=== PATIENT | female | born 1985 | race American Indian/Alaskan Native ===

== ENCOUNTER 2017-08-11 06:22 | Inpatient (IN) | payer OTHER ==
[~2017-08-11 06:22] MED LIST: PITOCin/NS 20 UNIT/1000ML DRIP 20,000 MILLIUNITS/1,000 ML BAG IV ONE; XYLOCAINE 2% INFILTRATI ONE
--- NOTE | 2017-08-11 06:28 | History and Physical Report ---
History of Present Illness Date of examination: 08/11/17 Date of admission: 08/11/17 06:23 Chief complaint: Labor History of present illness: Pt is a 32yo HF EDC 08/21/17; EGA 38 4/7 weeks presents to L&D complaining of RUC's q 2-3 mins. Cx 9.5/C/V/0 She received care at [facility] and course has been unremarkable. records are not available, and GBS is unknown. Past History Past Medical History: no pertinent history Past Surgical History: no surgical history Social history: no significant social history, - Obstetrical History Expected Date of Delivery: 08/21/17 Actual Gestation: 38 Week(s) 4 Day(s) Medications and Allergies Allergies Allergy/AdvReac Type Severity Reaction Status Date / Time No Known Allergies Allergy Verified 08/11/17 06:50 Review of Systems All systems: negative - Physical Exam Breasts: Positive: deferred Cardiovascular: Regular rate Lungs: Positive: Clear to auscultation Abdomen: Positive: normal appearance Genitourinary (Female): Positive: normal external genitalia Uterus: Positive: enlarged Extremities: Positive: normal - Obstetrical FHR: category 1 Uterine Contraction Monitor Mode: External Cervical Dilatation: 9.5 Cervical Effacement Percentage: 100 station: 0 Uterine Contraction Pattern: Regular Uterine Tone Measurement Phase: Contraction Uterine Contraction Intensity: Strong/Firm Results Result Diagrams: 08/11/17 06:15 All other labs normal. Assessment and Plan - Patient Problems (1) 38 weeks gestation of Onset Date: 08/11/17 Current Visit: Yes Status: Acute Plan to address problem: A: IUP @ 38 4/7 weeks in labor Unknown GBS P: Admit to L&D for expectant vaginal delivery IV Ampicillin Obtain Medical records
[2017-08-11] MEDS ORDERED: SUBLIMAZE IV PRN (06:30)
[2017-08-11] MEDS ORDERED: XYLOCAINE 2% INFILTRATI ONE (06:30)
[2017-08-11] MEDS ORDERED: MINERAL OIL PO PRN (06:30)
[2017-08-11] MEDS ORDERED: ePHEDrine SULFATE IV PRN (06:30)
[2017-08-11] MEDS ORDERED: BRETHINE SUB-Q PRN (06:30)
[2017-08-11] MEDS ORDERED: BRETHINE IVP PRN (06:30)
[2017-08-11] MEDS ORDERED: TYLENOL PO PRN (06:33)
[2017-08-11] MEDS ORDERED: PHENERGAN PO PRN (06:33)
[2017-08-11] MEDS ORDERED: ZOFRAN IV PRN (06:33)
[2017-08-11] MEDS ORDERED: BENADRYL PO PRN (06:33)
[2017-08-11] MEDS ORDERED: MILK OF MAGNESIA PO PRN (06:33)
[2017-08-11] MEDS ORDERED: TUCKS PAD TP PRN (06:33)
[2017-08-11] MEDS ORDERED: NORCO 5/325 PO PRN (06:33)
[2017-08-11] MEDS ORDERED: LANSINOH TP PRN (06:33)
[2017-08-11] MEDS ORDERED: DULCOLAX PR PRN (06:33)
[2017-08-11] MEDS ORDERED: PHENERGAN PR PRN (06:33)
--- NOTE | 2017-08-11 06:39 | Procedure Note ---
OB Delivery Note - Delivery Date of Delivery: 08/11/17 Surgeon: MACHO WALTON Estimated blood loss: 100cc - Vaginal Delivery presentation: vertex Delivery position: OA Intrapartum events: precipitous labor- <3hr Delivery induction: none Delivery augmentation: rupture of membranes Delivery monitor: external FHT, external uterine Route of delivery: Delivery placenta: spontaneous Delivery cord: 3 umbilical vessels Episiotomy: none Delivery laceration: 1st degree Delivery repair: vicryl Anesthesia: local Delivery comments: Infant delivered OA and placed on Mom's chest for [id number] bonding and delayed cord clamping. - Infant A at 1 minute: 8 at 5 minutes: 9 Gender: Female (3147gms)
[2017-08-11] MEDS ORDERED: PITOCin/NS 30 UNIT/500ML 30 UNITS/500 ML BAG IV SCH (07:00)
[2017-08-11] MEDS ORDERED: SODIUM CHLORIDE FLUSH SYRINGE 10 ML IV PRN (07:00)
[2017-08-11] MEDS ORDERED: LACTATED RINGERS 1,000 ML IV SCH (07:00)
[2017-08-11] MEDS ORDERED: PITOCin/NS 20 UNIT/1000ML DRIP 20 UNITS/1,000 ML BAG IV SCH ×2 (07:00)
[2017-08-11 07:12] LABS: Hematocrit 37.5 % (30.3-42.9); Hemoglobin 12.1 gm/dl (10.1-14.3); Mean Corpuscular HGB Conc 32 % (30-34); Mean Corpuscular Hemoglobin 28 pg (28-32); Mean Corpuscular Volume 88 fl (79-97); Platelet Count 196 K/mm3 (140-440); Red Blood Count 4.28 M/mm3 (3.65-5.03); Red Cell Distribution Width 15.4 % (13.2-15.2); White Blood Count 17.1 K/mm3 (4.5-11.0)
[2017-08-11 11:23] LABS: HIV-1 Antigen p24 Non React (Non React); HIVR-1/2 Ab Non React (Non React)
[2017-08-11] MEDS: PRENATAL VITAMIN PO SCH (12:38)
[2017-08-11] MEDS: FEOSOL PO SCH ×2 (12:38→21:30)
[2017-08-11] MEDS: COLACE PO SCH ×2 (12:39→21:30)
[2017-08-11] MEDS: MOTRIN PO SCH ×2 (12:39→18:15)
[2017-08-11 18:41] LABS: Hematocrit 32.7 % (30.3-42.9); Hemoglobin 10.5 gm/dl (10.1-14.3)
[2017-08-12] MEDS: MOTRIN PO SCH ×4 (00:12→17:55)
[2017-08-12] MEDS ORDERED: BOOSTRIX IM ONE (06:00)
[2017-08-12] MEDS ORDERED: M-M-R II VACCINE SUB-Q ONE (06:33)
[2017-08-12] MEDS: FEOSOL PO SCH ×2 (09:27→22:33)
[2017-08-12] MEDS: COLACE PO SCH ×2 (09:27→22:33)
[2017-08-12] MEDS: PRENATAL VITAMIN PO SCH (09:27)
--- NOTE | 2017-08-12 09:58 | Progress Note ---
Assessment and Plan A: PPD 1 - stable P: Continue current management Discharge patient to home Subjective - Subjective Date of service: 08/12/17 Patient reports: appetite normal, voiding normally, pain well controlled, ambulating normally : doing well, nursing well Objective - Vital Signs Latest vital signs: Vital Signs Temp Pulse Resp BP BP Pulse Ox 08/12/17 07:35 98.3 F 61 18 95/56 96 08/12/17 06:19 18 08/12/17 05:19 16 08/12/17 00:30 98.6 F 72 16 102/68 08/11/17 20:45 98.6 F 72 16 114/69 08/11/17 16:30 98.7 F 69 18 101/50 08/11/17 12:50 98.3 F 65 18 89/60 08/11/17 10:05 98.6 F 70 18 100/77 98 Intake and Output 08/11/17 08/12/17 08/12/17 23:59 07:59 15:59 Intake Total 370 300 Balance 370 300 Intake: Oral 370 Intake, Free Water 300 Other: Total, Intake Amount 250 # Voids Void 1 - Exam Breasts: Present: normal Cardiovascular: Present: Regular rate, Normal S1 Lungs: Present: Clear to auscultation Abdomen: Present: normal appearance, soft Vulva: both: normal Uterus: Present: normal, firm, other (midline) Extremities: Present: normal Deep Tendon Reflex Grade: Normal +2
--- NOTE | 2017-08-12 10:01 | Discharge Summary ---
Providers - Providers Date of Admission: 08/11/17 06:23 Attending physician: MERCED PATRICK MD Primary care physician: MERCED PATRICK MD Hospitalization Delivery: Episiotomy: none Laceration: 1st degree Other procedures: none complications: none Discharge diagnosis: IUP at term delivered [place] baby: female Hospital course: Uncomplicated Condition at discharge: Stable Disposition: DC-01 TO HOME OR SELFCARE Plan - Provider Discharge Summary Activity: routine, no sex for 6 weeks, no heavy lifting 4 weeks, no strenuous exercise Diet: routine Instructions: routine Additional instructions: [] Smoking cessation referral if applicable(refer to patient education folder for contact #) [] Refer to [facility] Booklet Call your doctor immediately for: * Fever > 100.5 * Heavy vaginal bleeding ( >1 pad per hour) * Severe persistent headache * Shortness of breath * Reddened, hot, painful area to leg or breast * Drainage or odor from incision. * Keep incision clean and dry at all times and follow doctor's instructions regarding bathing/showering - Follow up plan Follow up: MERCED PATRICK MD [Primary Care Provider] - 7 Days
[2017-08-13] MEDS: MOTRIN PO SCH ×2 (00:13→05:32)
[2017-08-13] MEDS: COLACE PO SCH (08:40)
[2017-08-13] MEDS: FEOSOL PO SCH (08:41)
[2017-08-13] MEDS: PRENATAL VITAMIN PO SCH (08:41)
[2017-08-13 08:55] VITALS: BP 97/48
--- NOTE | 2017-08-13 13:31 | Progress Note ---
Assessment and Plan A: day 2 S/P . P: Discharge patient home today. Patient to receive Depo Provera 150 mg IM prior to discharge. discharge instructions and warning signs discussed with patient. Advised patient to avoid IC, avoid driving, avoid housework and lifting. Advised patient to follow up with [facility] in 6 weeks. Patient voiced understanding of instructions. Subjective - Subjective Date of service: 08/13/17 Principal diagnosis: day 2 S/P Interval history: day 2 S/P . Doing well. Patient desires discharge today. Patient is voiding without difficulty and ambulating well. She is tolerating a regular diet without nausea or vomiting. Patient denies headache, cough, chest pain, shortness of breath, leg pain, abdominal pain, or heavy vaginal bleeding. Patient wants to use Depo Provera for control. Patient reports: appetite normal, voiding normally, pain well controlled, flatus , ambulating normally [place]: doing well Objective - Vital Signs Latest vital signs: Vital Signs Temp Pulse Resp BP Pulse Ox 08/13/17 08:52 98.8 F 72 20 97/48 97 08/13/17 00:50 98.1 F 79 1 L 113/62 98 08/12/17 16:50 98.3 F 83 18 109/53 97 Intake and Output 08/12/17 08/13/17 08/13/17 23:59 07:59 15:59 Intake Total 720 360 Balance 720 360 Intake: Oral 480 360 Intake, Free Water 240 Other: Total, Intake Amount 120 120 # Voids Void 2 1 # Bowel Movements 0 - Exam Cardiovascular: Present: Regular rate, Normal S1, Normal S2 Lungs: Present: Clear to auscultation Abdomen: Present: normal appearance, normal bowel sounds. Absent: distention, tenderness, guarding, rigidity Uterus: Present: normal, firm. Absent: bogginess, tenderness, fundal height below umbilicus Extremities: Present: normal. Absent: tenderness, edema
--- NOTE | 2017-08-13 13:48 | Discharge Summary ---
Providers - Providers Date of Admission: 08/11/17 06:23 Date of discharge: 08/13/17 Attending physician: MERCED PATRICK MD None Primary care physician: MERCED PATRICK MD Hospitalization Reason for admission: active labor Delivery: Episiotomy: none Laceration: 1st degree complications: none Discharge diagnosis: IUP at term delivered [place] baby: female Pertinent studies: Labs Condition at discharge: Stable Disposition: DC-01 TO HOME OR SELFCARE Plan - Provider Discharge Summary Activity: routine, no sex for 6 weeks, no heavy lifting 4 weeks, no strenuous exercise Diet: routine Instructions: routine Additional instructions: Call your doctor immediately for: * Fever > 100.5 * Heavy vaginal bleeding ( >1 pad per hour) * Severe persistent headache * Shortness of breath * Reddened, hot, painful area to leg or breast - Follow up plan Follow up: MERCED PATRICK MD [Primary Care Provider] - 6 Weeks Forms: [facility] Discharge Summary, Discharge Signature Page
[2017-08-13] MEDS ORDERED: DEPO-PROVERA (CONTRACEPTION) IM ONE (14:50)
== END 2017-08-13 13:30 | disposition home or self-care (01) | DRG 775 ==
LOC: TRG 06:22 → LD 06:23 → OB 10:19
PROVIDERS: ADMIT Obstetrics & Gynecology; ATTEND Obstetrics & Gynecology
PROC: 10E0XZZ Delivery of Products of Conception, External Approach (ICD-10-PCS; principal; 2017-08-11)
PROC: 0HQ9XZZ Repair Perineum Skin, External Approach (ICD-10-PCS; 2017-08-11)
PROC: 3E0234Z Introduction of Serum, Toxoid and Vaccine into Muscle, Percutaneous Approach (ICD-10-PCS; 2017-08-12)
DX: O62.3 Precipitate labor (principal); Z3A.38 38 weeks gestation of pregnancy; Z37.0 Single live birth; O70.0 First degree perineal laceration during delivery; Z23 Encounter for immunization
CPT/HCPCS: 36415; 80074; 85014; 85018; 85027; 86592; 86762; 86850; 86900; 86901; 87806; 90471; 90715; 99211; G0463; J2590